=== PATIENT | male | born 1950 | race Caucasian/White ===

== ENCOUNTER → 2023-08-21 06:17 | Outpatient (REF) | payer MEDICARE, OTHER, SELFPAY ==
[2023-08-21 07:17] LABS: Erythrocyte Sed Rate 18 mm/hour (0-20)
[2023-08-21 07:18] LABS: Creatine Phosphokinase 102 U/L (55-170); Uric Acid 7.2 mg/dl (3.5-8.5)
[2023-08-23 08:26] LABS: Myeloperoxidase Antibody 0 AU/mL (0-19); Serine Protease-3, IgG 0 AU/mL (0-19)
[2023-08-23 12:48] LABS: Glu-6-Phosphate Dehydrogenase 11.5 U/g Hb (9.9-16.6)
[2023-08-25 04:14] LABS: Albumin 4.15 g/dL (3.75-5.01); Alpha 1 Globulin 0.22 g/dL (0.19-0.46); Alpha 2 Globulin 0.61 g/dL (0.48-1.05); Free Kappa Light Chains,Quant 22.98 mg/L (3.30-19.40); Free Lambda Light Chains,Quant 19.72 mg/L (5.71-26.30); IgA 269 mg/dL (68-408); IgG 944 mg/dL (768-1632); IgM 112 mg/dL (35-263); Immunofixation Electrophoresis IFE Done; Kappa/Lambda Fr Light Ratio 1.17 (0.26-1.65); Total Protein-Electrophoresis 6.7 g/dL (6.3-8.2)
== END ==
LOC: REG 06:17
PROVIDERS: ATTENDING PHYSICIAN Internal Medicine Rheumatology; FAMILY PHYSICIAN Family Medicine
DX: R70.0 Elevated erythrocyte sedimentation rate (principal)
CPT/HCPCS: 36415; 82550; 82784; 82955; 83516; 83521; 84155; 84165; 84550; 85652; 86140; 86334

== ENCOUNTER → 2023-09-02 06:26 | Outpatient (REF) | payer MEDICARE, OTHER, SELFPAY ==
[2023-09-02 07:52] LABS: ALT (SGPT) 20 U/L (0-50); AST (SGOT) 21 U/L (17-59); Alkaline Phosphatase 53 U/L (38-126); Blood Urea Nitrogen 23 mg/dl (9-20); Calcium 9.5 mg/dl (8.4-10.2); Carbon Dioxide 26 mmol/L (22-30); Chloride 106 mmol/L (98-107); Glucose 105 mg/dl (70-99); HDL Cholesterol 59 mg/dl; LDL Cholesterol, Calculated 72 mg/dl; Sodium 141 mmol/L (135-145); Total Bilirubin 0.9 mg/dl (0.2-1.3); Total Cholesterol 157 mg/dl (50-199); Total Protein 6.7 g/dl (6.3-8.2); Triglyceride 130 mg/dl (10-149); Very Low Density Lipoprotein 26 mg/dl (0-30); eGFR > 60.00
[2023-09-02 09:27] LABS: Glycohemoglobin (HgbA1c) 6.5 % (4.0-5.6)
== END ==
LOC: REG 06:26
PROVIDERS: ATTENDING PHYSICIAN Internal Medicine Cardiovascular Disease; FAMILY PHYSICIAN Family Medicine
DX: E78.2 Mixed hyperlipidemia (principal); I25.118 Atherosclerotic heart disease of native coronary artery with other forms of angina pectoris; R73.03 Prediabetes; I10 Essential (primary) hypertension
CPT/HCPCS: 36415; 80053; 80061; 83036

== ENCOUNTER → 2023-09-09 19:30 | Outpatient (REF) | payer MEDICARE, OTHER, SELFPAY ==
[2023-09-10 19:36] LABS: Urine Albumin Negative (Neg - Trace); Urine Bilirubin Negative (Negative); Urine Character Clear (Clear); Urine Color Yellow; Urine Glucose Negative (Negative); Urine Ketone Negative (Negative); Urine Leukocyte Negative (Negative); Urine Nitrite Negative (Negative); Urine Occult Blood Negative (Negative); Urine Specific Gravity 1.025 (<1.030); Urine Urobilinogen Negative (Neg - 1+)
[2023-09-10 20:03] LABS: Microalbumin, Random Urine < 0.6 mg/dl (0.6-1.7)
== END ==
LOC: CLAB 19:30
PROVIDERS: ATTENDING PHYSICIAN Family Medicine
DX: E11.69 Type 2 diabetes mellitus with other specified complication (principal); E78.5 Hyperlipidemia, unspecified
CPT/HCPCS: 81003; 82043; 82570

== ENCOUNTER → 2023-09-11 06:26 | Day surgery (SDC) | payer MEDICARE, OTHER, SELFPAY ==
[2023-09-11 07:26] LABS: Glucose - Point of Care 110 mg/dl (70-99)
== END ==
LOC: GI 06:26
PROVIDERS: ATTENDING PHYSICIAN Specialist; FAMILY PHYSICIAN Family Medicine
DX: Z12.11 Encounter for screening for malignant neoplasm of colon (principal); Z86.010 Personal history of colon polyps; K64.8 Other hemorrhoids
CPT/HCPCS: G0105; 82962

== ENCOUNTER → 2023-09-27 06:20 | Day surgery (SDC) | payer MEDICARE, OTHER, SELFPAY ==
[2023-09-27 08:19] LABS: Glucose - Point of Care 137 mg/dl (70-99)
== END ==
LOC: GI 06:20
PROVIDERS: ATTENDING PHYSICIAN Specialist
DX: K22.89 Other specified disease of esophagus (principal); K31.7 Polyp of stomach and duodenum; K31.89 Other diseases of stomach and duodenum; K29.50 Unspecified chronic gastritis without bleeding; K20.80 Other esophagitis without bleeding
CPT/HCPCS: 43239; 88305; 82962; 88342

== ENCOUNTER → 2023-12-09 06:34 | Outpatient (REF) | payer MEDICARE, OTHER, SELFPAY ==
[2023-12-09 08:38] LABS: ALT (SGPT) 19 U/L (0-50); AST (SGOT) 25 U/L (17-59); Albumin 4.4 g/dl (3.5-5.0); Alkaline Phosphatase 55 U/L (38-126); Blood Urea Nitrogen 30 mg/dl (9-20); Calcium 9.9 mg/dl (8.4-10.2); Carbon Dioxide 26 mmol/L (22-30); Chloride 103 mmol/L (98-107); Glucose 122 mg/dl (70-99); HDL Cholesterol 61 mg/dl; LDL Cholesterol, Calculated 68 mg/dl; Potassium 4.9 mmol/L (3.5-5.1); Sodium 139 mmol/L (135-145); Total Bilirubin 1.2 mg/dl (0.2-1.3); Total Cholesterol 173 mg/dl (50-199); Triglyceride 223 mg/dl (10-149); Very Low Density Lipoprotein 44 mg/dl (0-30); eGFR > 60.00
[2023-12-09 10:16] LABS: Glycohemoglobin (HgbA1c) 6.3 % (4.0-5.6)
== END ==
LOC: REG 06:34
PROVIDERS: ATTENDING PHYSICIAN Family Medicine
DX: E11.69 Type 2 diabetes mellitus with other specified complication (principal); E78.5 Hyperlipidemia, unspecified
CPT/HCPCS: 36415; 80053; 80061; 83036

== ENCOUNTER → 2024-03-02 06:34 | Outpatient (REF) | payer MEDICARE, OTHER, SELFPAY ==
[2024-03-02 08:33] LABS: Microalbumin, Random Urine <0.6 mg/dl (0.6-1.7)
[2024-03-02 08:36] LABS: Creatine Phosphokinase 98 U/L (55-170); Iron 112 ug/dl (49-181)
[2024-03-02 08:38] LABS: ALT (SGPT) 20 U/L (0-50); AST (SGOT) 25 U/L (17-59); Albumin 4.1 g/dl (3.5-5.0); Alkaline Phosphatase 61 U/L (38-126); Blood Urea Nitrogen 23 mg/dl (9-20); Calcium 9.9 mg/dl (8.4-10.2); Carbon Dioxide 28 mmol/L (22-30); Chloride 103 mmol/L (98-107); Glucose 126 mg/dl (70-99); HDL Cholesterol 39 mg/dl; LDL Cholesterol, Calculated 69 mg/dl; Potassium 4.3 mmol/L (3.5-5.1); Sodium 144 mmol/L (135-145); Total Cholesterol 186 mg/dl (50-199); Total Protein 6.5 g/dl (6.3-8.2); Triglyceride 390 mg/dl (10-149); Very Low Density Lipoprotein 78 mg/dl (0-30); eGFR > 60.00
[2024-03-02 08:39] LABS: C-Reactive Protein < 5.00 mg/L (0.0-10.00)
[2024-03-02 09:10] LABS: Cortisol, Random 9.9 ug/dl; TSH 1.57 uIU/ml (0.47-4.68)
[2024-03-02 09:24] LABS: Erythrocyte Sed Rate 22 mm/hour (0-20)
[2024-03-02 09:29] LABS: Vitamin B12 535 pg/ml (239-931)
[2024-03-02 09:40] LABS: Vitamin D, 25-OH*** 88.7 ng/mL (30-80)
[2024-03-02 13:45] LABS: Lyme Antibody Screen, EIA Negative (Negative)
[2024-03-03 09:14] LABS: Glycohemoglobin (HgbA1c) 6.5 % (4.0-5.6)
== END ==
LOC: REG 06:34
PROVIDERS: ATTENDING PHYSICIAN Nurse Practitioner; FAMILY PHYSICIAN Family Medicine; REFERRING PHYSICIAN Internal Medicine Rheumatology
DX: R53.83 Other fatigue (principal); R52 Pain, unspecified; E11.69 Type 2 diabetes mellitus with other specified complication; E55.9 Vitamin D deficiency, unspecified; E61.1 Iron deficiency; R70.0 Elevated erythrocyte sedimentation rate; K80.50 Calculus of bile duct without cholangitis or cholecystitis without obstruction
CPT/HCPCS: 36415; 80053; 80061; 82043; 82306; 82533; 82550; 82570; 82607; 82728; 83036; 83540; 84443; 85652; 86140; 86618

== ENCOUNTER → 2024-04-02 06:21 | Outpatient (REF) | payer MEDICARE, OTHER, SELFPAY ==
[2024-04-02 07:29] LABS: Hemoglobin 15.1 g/dL (13.0-18.0); Mean Corp Hgb Conc. 35.1 g/dL (33.0-37.0); Mean Corpuscular Hgb 31.8 pg (27.0-31.0); Mean Corpuscular Volume 90.5 fL (80.0-94.0); Mean Platelet Volume 9.3 fL (7.4-10.4); Platelet Count 266 10^3/uL (130-400); Red Blood Cell Count 4.75 10^6/uL (4.70-6.10); Red Cell Dist. Width 12.9 % (11.5-14.5); White Blood Cell Count 8.8 10^3/uL (4.8-10.8)
[2024-04-02 08:24] LABS: PSA, Total - Diagnostic 4.65 ng/ml (0.0-4.0)
== END ==
LOC: REG 06:21
PROVIDERS: ATTENDING PHYSICIAN Specialist; FAMILY PHYSICIAN Family Medicine
DX: E29.1 Testicular hypofunction (principal); R97.20 Elevated prostate specific antigen [PSA]
CPT/HCPCS: 36415; 84153; 85027

== ENCOUNTER → 2024-06-01 06:23 | Outpatient (REF) | payer MEDICARE, OTHER, SELFPAY ==
[2024-06-01 07:34] LABS: Urine Albumin Negative (Neg - Trace); Urine Bilirubin Negative (Negative); Urine Character Clear (Clear); Urine Color Yellow; Urine Glucose Negative (Negative); Urine Ketone Negative (Negative); Urine Leukocyte Negative (Negative); Urine Nitrite Negative (Negative); Urine Occult Blood Negative (Negative); Urine Specific Gravity 1.015 (<1.030); Urine Urobilinogen Negative (Neg - 1+); Urine pH 6.5 (5.0-9.0)
[2024-06-01 07:55] LABS: PSA, Total - Diagnostic 1.78 ng/ml (0.0-4.0)
== END ==
LOC: REG 06:23
PROVIDERS: ATTENDING PHYSICIAN Specialist; FAMILY PHYSICIAN Family Medicine
DX: R97.20 Elevated prostate specific antigen [PSA] (principal); R35.0 Frequency of micturition
CPT/HCPCS: 36415; 81003; 84153

== ENCOUNTER → 2024-07-14 08:01 | Outpatient (REF) | payer MEDICARE, OTHER, SELFPAY ==
[2024-07-14 10:08] LABS: % Basophils 0.7 % (0-2); % Eosinophils 3.7 % (0-6); % Immature Granulocytes 0.3 % (0-0.5); % Lymphocytes 23.3 % (20.5-51.1); % Monocytes 8.4 % (1.7-9.3); % Neutrophils 63.6 % (42.2-75.2); Absolute Eosinophils 0.2 10^3/uL (0-0.7); Absolute Lymphocytes 1.3 10^3/uL (1.2-3.4); Absolute Monocytes 0.5 10^3/uL (0.1-0.6); Absolute Neutrophils 3.6 10^3/uL (1.4-6.5); Hematocrit 41.6 % (39.0-52.0); Hemoglobin 14.6 g/dL (13.0-18.0); Mean Corp Hgb Conc. 35.1 g/dL (33.0-37.0); Mean Corpuscular Hgb 31.7 pg (27.0-31.0); Mean Corpuscular Volume 90.4 fL (80.0-94.0); Mean Platelet Volume 9.8 fL (7.4-10.4); Nucleated Red Blood Cells % 0 % (-); Platelet Count 219 10^3/uL (130-400); Red Cell Dist. Width 13.2 % (11.5-14.5); White Blood Cell Count 5.7 10^3/uL (4.8-10.8)
[2024-07-14 10:53] LABS: ALT (SGPT) 28 U/L (0-50); AST (SGOT) 29 U/L (17-59); Albumin 4.5 g/dl (3.5-5.0); Alkaline Phosphatase 58 U/L (38-126); Blood Urea Nitrogen 21 mg/dl (9-20); Calcium 9.5 mg/dl (8.4-10.2); Carbon Dioxide 21 mmol/L (22-30); Chloride 101 mmol/L (98-107); Glucose 123 mg/dl (70-99); HDL Cholesterol 44 mg/dl; LDL Cholesterol, Calculated 138 mg/dl; Potassium 4.4 mmol/L (3.5-5.1); Sodium 136 mmol/L (135-145); Total Bilirubin 1.4 mg/dl (0.2-1.3); Total Cholesterol 227 mg/dl (50-199); Total Protein 7.1 g/dl (6.3-8.2); Triglyceride 227 mg/dl (10-149); Very Low Density Lipoprotein 45 mg/dl (0-30); eGFR > 60.00
[2024-07-14 12:01] LABS: Glycohemoglobin (HgbA1c) 6.4 % (4.0-5.6)
== END ==
LOC: REG 08:01
PROVIDERS: ATTENDING PHYSICIAN Family Medicine
DX: N40.1 Benign prostatic hyperplasia with lower urinary tract symptoms (principal); R97.20 Elevated prostate specific antigen [PSA]; I10 Essential (primary) hypertension; T88.1XXS Other complications following immunization, not elsewhere classified, sequela; E11.69 Type 2 diabetes mellitus with other specified complication; E29.1 Testicular hypofunction; E78.5 Hyperlipidemia, unspecified
CPT/HCPCS: 36415; 80053; 80061; 83036; 85025

== ENCOUNTER → 2024-08-03 06:56 | Outpatient (REF) | payer MEDICARE, OTHER, SELFPAY ==
[2024-08-03 08:53] LABS: ALT (SGPT) 24 U/L (0-50); AST (SGOT) 24 U/L (17-59); Albumin 4.3 g/dl (3.5-5.0); Alkaline Phosphatase 64 U/L (38-126); Blood Urea Nitrogen 39 mg/dl (9-20); Calcium 9.8 mg/dl (8.4-10.2); Carbon Dioxide 30 mmol/L (22-30); Chloride 101 mmol/L (98-107); Glucose 138 mg/dl (70-99); HDL Cholesterol 43 mg/dl; LDL Cholesterol, Calculated 102 mg/dl; Sodium 138 mmol/L (135-145); Total Bilirubin 0.9 mg/dl (0.2-1.3); Total Cholesterol 205 mg/dl (50-199); Total Protein 7.2 g/dl (6.3-8.2); Triglyceride 303 mg/dl (10-149); Very Low Density Lipoprotein 60 mg/dl (0-30); eGFR 42.57
== END ==
LOC: REG 06:56
PROVIDERS: ATTENDING PHYSICIAN Internal Medicine Cardiovascular Disease; FAMILY PHYSICIAN Family Medicine
DX: E78.2 Mixed hyperlipidemia (principal); I25.118 Atherosclerotic heart disease of native coronary artery with other forms of angina pectoris
CPT/HCPCS: 36415; 80053; 80061

== ENCOUNTER → 2024-09-07 06:22 | Outpatient (REF) | payer MEDICARE, OTHER, SELFPAY ==
[2024-09-07 08:18] LABS: ALT (SGPT) 32 U/L (0-50); AST (SGOT) 28 U/L (17-59); Albumin 3.9 g/dl (3.5-5.0); Alkaline Phosphatase 55 U/L (38-126); Blood Urea Nitrogen 25 mg/dl (9-20); Calcium 9.6 mg/dl (8.4-10.2); Carbon Dioxide 26 mmol/L (22-30); Chloride 104 mmol/L (98-107); Glucose 132 mg/dl (70-99); HDL Cholesterol 42 mg/dl; LDL Cholesterol, Calculated 82 mg/dl; Potassium 4.9 mmol/L (3.5-5.1); Sodium 138 mmol/L (135-145); Total Bilirubin 1.1 mg/dl (0.2-1.3); Total Cholesterol 173 mg/dl (50-199); Total Protein 6.4 g/dl (6.3-8.2); Triglyceride 248 mg/dl (10-149); Very Low Density Lipoprotein 49 mg/dl (0-30); eGFR 58.73
== END ==
LOC: REG 06:22
PROVIDERS: ATTENDING PHYSICIAN Internal Medicine Cardiovascular Disease; FAMILY PHYSICIAN Family Medicine
DX: I25.118 Atherosclerotic heart disease of native coronary artery with other forms of angina pectoris (principal); E78.5 Hyperlipidemia, unspecified
CPT/HCPCS: 36415; 80053; 80061

== ENCOUNTER → 2024-10-26 06:25 | Outpatient (REF) | payer MEDICARE, OTHER, SELFPAY ==
[2024-10-26 08:52] LABS: Hematocrit 41.3 % (39.0-52.0); Hemoglobin 14.3 g/dL (13.0-18.0); Mean Corp Hgb Conc. 34.6 g/dL (33.0-37.0); Mean Corpuscular Hgb 31.6 pg (27.0-31.0); Mean Corpuscular Volume 91.2 fL (80.0-94.0); Mean Platelet Volume 9.7 fL (7.4-10.4); Platelet Count 206 10^3/uL (130-400); Red Blood Cell Count 4.53 10^6/uL (4.70-6.10); Red Cell Dist. Width 12.3 % (11.5-14.5); White Blood Cell Count 6.4 10^3/uL (4.8-10.8)
[2024-10-26 09:33] LABS: PSA, Total - Diagnostic 2.67 ng/ml (0.0-4.0)
== END ==
LOC: REG 06:25
PROVIDERS: ATTENDING PHYSICIAN Specialist; FAMILY PHYSICIAN Family Medicine
DX: E29.1 Testicular hypofunction (principal); R97.20 Elevated prostate specific antigen [PSA]
CPT/HCPCS: 36415; 84153; 84403; 85027

== ENCOUNTER 2024-10-26 06:44 | Emergency (ER) | payer MEDICARE, OTHER, SELFPAY ==
[2024-10-26 06:49] VITALS: BP 135/55
--- NOTE | 2024-10-26 08:29 | ED.GENMED ---
History of Present Illness
General
Chief Complaint: Musculo-Skeletal Complaint
Source: patient
Time Seen by Provider: 10/26/24 08:10
History of Present Illness
History of Present Illness:
74-year-old male with past medical history of hyperlipidemia, GERD, ozm-snxfics-inszmaeyl diabetes, previous spontaneous pneumothorax presenting to the emergency department for evaluation of right lateral foot pain that started couple weeks ago
while cleaning out his house, does not remember any specific injury to the area but states pain has been relatively constant prompting him to come to the ER. Has not attempted any medications for pain. Pain worse while ambulating. Denies any
focal weakness or numbness. Denies any previous history of injury or surgery.
Past History
Past History
ED Past Medical History: GERD, Hypercholesterolemia, NIDDM and Other (Hemorrhoids, arthritis, fractures, hearing impairment, psoriasis)
ED Past Surgical History: Cardiac (Cardiac catheterization without any obstructive disease), Orthopedic (Right shoulder surgery �2 left shoulder surgery �1), Tonsilectomy and Other (surgery for deviated septum)
Social History
Tobacco: Non-smoker
Alcohol: None
Drug: None
Personal:
Living: with family
Employment: Employed
Review of Systems
Review of Systems
All Other Systems: ROS reviewed and negative except as documented in HPI and ROS
Phy Exam
Physical Exam
Physical Exam:
GENERAL: Alert , in no apparent distress
EYE: conjunctiva clear
Head: Normocephalic atraumatic
NECK: Supple,
ENT: mmm.
LUNGS: no acute respiratory distress
NEUROLOGICAL: Alert and oriented
SKIN: Warm and dry, skin intact. No rashes or breaks in the skin
MUSCULOSKELETAL: well perfused. Easily palpable pedal and tibial pulses bilateral. Cap refill less than 2 seconds. No focal areas of tenderness to palpation, no obvious edema or joint effusion. No overlying erythema. Patient allows for full
range of motion of digits, ankle and knee without any complication.
PSYCH: Normal and appropriate interaction.
Scores
Heart Failure Risk
Heart Failure Risk Score: Not Applicable
Heart Score for Chest Pain Patients
STEMI patient?: Not applicable
Withdrawal Assessment of Alcohol
Withdrawal Assessment Completed?: Not applicable
Course
Orders/Labs/Results
Orders:
Orders
10/26/24 06:52
Foot, Right 3 View [CR Foot - Right Min 3 Views] Urgent
Comment:
Reason For Exam: FALL
10/26/24 08:16
CR Ankle - Right Min 3 Views * Urgent
Comment:
Reason For Exam: pain laterally
Vital Signs
Initial and Last Documented VS:
Initial Vital Signs
Temp Pulse Resp BP Pulse Ox
97.9 F 54 18 135/55 100
10/26/24 06:49 10/26/24 06:49 10/26/24 06:49 10/26/24 06:49 10/26/24 06:49
Last Documented Vital Signs
Temp Pulse Resp BP Pulse Ox
97.9 F 54 18 135/55 100
10/26/24 06:49 10/26/24 06:49 10/26/24 06:49 10/26/24 06:49 10/26/24 06:49
MDM/Problems Addressed
Differential Diagnosis Includes:
Sprain, tendinitis, plantar fasciitis, less concern for fracture given no acute trauma, no concern for vascular etiology
MDM/Problems Addressed:
74-year-old male presenting to the ER for continuous right foot pain/ankle pain for the last few weeks. Does not remember any specific trauma. Exam otherwise reassuring. X-ray was ordered from triage just of the foot which shows a questionable
distal fibula fracture versus shadowing. Will send patient back to x-ray for dedicated ankle view. Heel spur noted on the foot x-ray. Patient will likely need outpatient follow-up with foot and ankle Ortho.
*Radiology
Radiology exam reviewed: preliminary read by ED provider (No fracture within the foot, heel spur noted)
*Pulse Oximetry
Patient hypoxic: no
*Critical Care Note
Total Time (30-74mins, 75-104mins- exclusive of procedures): Not Applicable
Patient Management
Escalation/DeEscalation of care consider admission/obs:
X-ray of the ankle shows no acute fracture. I provided the patient with information for podiatry. Advised NSAIDs/Tylenol as needed for the pain but patient is otherwise stable for discharge home from the ER. Aware of return precautions.
ED Attending Note
-
Portions of this chart may have been created with voice recognition software.� Occasional wrong word or��sound alike� substitutions may have occurred due to the inherent limitations of voice recognition software.
Discharge Plan
Departure
Patient Disposition: Home (Routine Discharge)
Date of Disposition: 10/26/24
Time of Disposition: 08:53
Patient with high blood pressure during this ER visit?: No
Discharge Problem:
Foot pain, right
Instructions: Metatarsalgia (DC)
Prescriptions:
No Action
pantoprazole 40 MG tablet,delayed release (DR/EC)
40 mg PO DAILY
Testopel
8 - 10 tab PO [id number]
Repatha SureClick 140 MG/ML pen injector
140 mg SQ [id number]
trazodone 50 MG tablet
50 mg PO HS PRN (Reason: sleep)
sildenafil 100 mg Tablet
100 mg PO DAILY PRN (Reason: ED)
hydroxychloroquine 200 mg Tablet
200 mg PO BID
valsartan-hydrochlorothiazide 320-25 mg Tablet
0.5 tab PO DAILY
cholecalciferol (vitamin D3) [Vitamin D3] 125 mcg (5,000 unit) Tablet
125 mcg PO DAILY
Simponi 100 mg/mL Syringe
100 mg SC Q8W
Rx Instructions:
approximately early December was last dose
Referrals:
Fiordaliza,Derek J., DO [Family Provider] -
Lamine Parra DPM [Active] - (Foot/ankle specialist)
Interventions
Interventions:
*Risk Screen - Suicide Last Done: 10/26/24 06:49
*Neglect/Abuse Screening Last Done: 10/26/24 06:49
*Nursing Disposition Last Done: 10/26/24 09:00
ED-Musculoskeletal Assessment Last Done: 10/26/24 07:50
Discharge Date and Time
Discharge Date/Time: 10/26/24 09:00
Print Language: PALAUAN
== END 2024-10-26 09:00 | disposition home or self-care (01) ==
LOC: EMR 06:44
PROVIDERS: EMERGENCY PHYSICIAN Student in an Organized Health Care Education/Training Program; FAMILY PHYSICIAN Family Medicine
DX: M79.671 Pain in right foot (principal); W19.XXXA Unspecified fall, initial encounter; E78.00 Pure hypercholesterolemia, unspecified; K21.9 Gastro-esophageal reflux disease without esophagitis; E11.9 Type 2 diabetes mellitus without complications; L40.9 Psoriasis, unspecified; Z87.19 Personal history of other diseases of the digestive system
CPT/HCPCS: 99283; 73610; 73630

== ENCOUNTER → 2025-01-21 07:03 | Outpatient (REF) | payer MEDICARE, OTHER, SELFPAY ==
[2025-01-21 08:38] LABS: ALT (SGPT) 27 U/L (0-50); AST (SGOT) 24 U/L (17-59); Albumin 4.7 g/dl (3.5-5.0); Alkaline Phosphatase 55 U/L (38-126); Blood Urea Nitrogen 22 mg/dl (9-20); Calcium 9.6 mg/dl (8.4-10.2); Carbon Dioxide 26 mmol/L (22-30); Chloride 105 mmol/L (98-107); Glucose 124 mg/dl (70-99); HDL Cholesterol 44 mg/dl; LDL Cholesterol, Calculated 33 mg/dl; Potassium 4.7 mmol/L (3.5-5.1); Sodium 138 mmol/L (135-145); Total Protein 7.4 g/dl (6.3-8.2); Very Low Density Lipoprotein 48 mg/dl (0-30); eGFR > 60.00
[2025-01-21 09:08] LABS: TSH 1.33 uIU/ml (0.47-4.68)
[2025-01-21 09:31] LABS: Glycohemoglobin (HgbA1c) 6.1 % (4.0-5.6)
== END ==
LOC: REG 07:03
PROVIDERS: ATTENDING PHYSICIAN Family Medicine; OTHER PHYSICIAN Nurse Practitioner
DX: E78.5 Hyperlipidemia, unspecified (principal); N18.30 Chronic kidney disease, stage 3 unspecified; E11.69 Type 2 diabetes mellitus with other specified complication; M79.7 Fibromyalgia; I10 Essential (primary) hypertension; E29.1 Testicular hypofunction; T46.6X5D Adverse effect of antihyperlipidemic and antiarteriosclerotic drugs, subsequent encounter; M79.10 Myalgia, unspecified site
CPT/HCPCS: 36415; 80053; 80061; 83036; 84443

== ENCOUNTER → 2025-03-02 07:49 | Outpatient (REF) | payer MEDICARE, OTHER, SELFPAY ==
[2025-03-02 08:52] LABS: Hematocrit 46.9 % (39.0-52.0); Hemoglobin 16.0 g/dL (13.0-18.0); Mean Corp Hgb Conc. 34.1 g/dL (33.0-37.0); Mean Corpuscular Volume 91.6 fL (80.0-94.0); Platelet Count 242 10^3/uL (130-400); Red Cell Dist. Width 12.3 % (11.5-14.5)
[2025-03-02 10:04] LABS: PSA, Total - Diagnostic 2.58 ng/ml (0.0-4.0)
== END ==
LOC: REG 07:49
PROVIDERS: ATTENDING PHYSICIAN Specialist; FAMILY PHYSICIAN Family Medicine
DX: E29.1 Testicular hypofunction (principal); R97.20 Elevated prostate specific antigen [PSA]
CPT/HCPCS: 36415; 84153; 84403; 85027

== ENCOUNTER 2025-03-23 11:13 | Day surgery (SDC) | payer MEDICARE, OTHER, SELFPAY ==
[2025-03-23] VITALS (13 sets, daily range): BP systolic 119–150; BP diastolic 45–72; BMI 28.5
[2025-03-23] MEDS: NSS 248 ML IV (12:41)
[2025-03-23 13:09] LABS: ALT (SGPT) 23 U/L (0-50); AST (SGOT) 22 U/L (17-59); Albumin 4.4 g/dl (3.5-5.0); Alkaline Phosphatase 63 U/L (38-126); Blood Urea Nitrogen 28 mg/dl (9-20); Calcium 9.9 mg/dl (8.4-10.2); Carbon Dioxide 25 mmol/L (22-30); Chloride 105 mmol/L (98-107); Estimated Creatinine Clearance 48 ml/min; Glucose 112 mg/dl (70-99); Potassium 4.4 mmol/L (3.5-5.1); Sodium 136 mmol/L (135-145); Total Protein 7.2 g/dl (6.3-8.2); eGFR 58.37
[2025-03-23 15:23] LABS: ACT-LR - POC 252 Seconds (116-155)
[2025-03-23 15:43] LABS: ACT-LR - POC 385 Seconds (116-155)
--- NOTE | 2025-03-23 19:28 | ITS.CL.PN ---
Penology Professor - Procedure Note
Procedure
Procedure Note:
CARDIAC CATHETERIZATION REPORT
Date of Procedure: 03/23/2025
Referring: Dr. Brandon Sanchez MD, PhD
Indication: anginal chest pain despite maximally tolerated antianginals
PROCEDURE(S)
1. left heart catheterization
2. coronary angiography
3. iFR LAD
4. IVUS LAD
5. PCI with DANIS to LAD
ACCESS: 6F right femoral artery (closure: Angioseal x1; radial artery not used due to reported severe radial artery spasm)
CATHETERS
1. 6F JR4
2. EBU3.75 guide catheter
MODERATE SEDATION: 35 minutes of moderate sedation was utilized. An independent medical instrument technician was present to assist with and help manage the patient's level of consciousness and physiologic status.
HEMODYNAMIC DATA
LV 133/11 (EDP 19) mmHg
AO 139/70 (mean 99) mmHg
CORONARY ANGIOGRAPHY
Dominance: Right
LM: Large vessel with mild ostial narrowing, contrast reflux noted on injection, and no pressure dampening on engagement.
LAD: Large vessel giving rise to 2 small diagonal branches and wrapping around the apex. There is a long calcified lesion in the proximal LAD up to 60%. This was further assessed with iFR.
LCx: Moderate caliber vessel giving rise to small early rising marginals and a moderate caliber distal OM. There are mild luminal irregularities only.
RCA: Large vessel giving rise to a moderate caliber RPDA and a moderate caliber RPL branch. There are mild luminal irregularities only.
iFR of LAD
Heparin was given to achieve ACT greater than 250, and a EBU 3.75 guide catheter was used to engage the left main. An Omni wire was flushed and zeroed outside the body and then advanced to the left main. The wire introducer was removed and the
catheter flushed with saline, after which pressure of the wire and guide were normalized. The wire was advanced to the mid LAD and iFR recorded at 0.79. iFR pullback was performed noting a focal pattern with most of the contribution from the severe
calcific lesion but some diffuse contribution from the mild disease extending proximally to the LAD ostium. On return to the left main, iFR appropriately normalized to ~1.0, confirming lack of wire drift. Based on this result, the decision was made
to perform LAD PCI.
PCI with DANIS to LAD
Additional heparin was given to achieve ACT greater than 300. Initial lesion preparation was performed with a 2.0 mm semicompliant balloon with full expansion. IVUS was performed demonstrating a 3.0 mm distal reference vessel diameter and 3.25 mm
proximal reference vessel diameter. Further lesion preparation was performed with a 3.0 mm NC balloon which fully expanded at 12 german. Stenting was performed with a 3.0 x 30 mm [place] Haakon drug-eluting stent deployed at 16 german followed by post
dilation with a 3.0 mm NC balloon sparing the distal and proximal edge and inflated to 20 german elsewhere. IVUS was performed which demonstrated full stent expansion and apposition without edge dissection. The proximal edge of the stent was noted to
land just before an area of heavier plaque at the ostial LAD. Final angiographic result was excellent. The wire and guide were removed and the groin closed with Angio-Seal x 1. The patient was loaded with 600 mg of Plavix.
RADIATION: dose 332 mGy; DAP 19.0 Gy*cm2; fluoroscopy time 10.9 min
CONCLUSIONS
1. Single-vessel obstructive coronary artery disease as described with iFR positive proximal LAD stenosis
2. Mildly elevated LV filling pressure and no aortic stenosis
3. IVUS guided PCI with DANIS to proximal LAD (3.0 x 30 mm Ti[place] Haakon drug-eluting stent postdilated to high-pressure with 3.0 mm NC balloon)
RECOMMENDATIONS
1. DAPT with aspirin and Plavix for 6 months followed by lifetime aspirin
2. Continued aggressive secondary prevention of coronary artery disease
Copy to: Dr. Brandon Sanchez MD, PhD (robotic toy inventor); Dr. Derek Mancera MD (PCP)
Signed: Brandon Sanchez MD, PhD
[2025-03-23] MEDS: TYLENOL 650 MG PO (19:54)
[2025-03-23] MEDS: DESYREL 50 MG PO (22:14)
--- NOTE | 2025-03-23 23:40 | W.PN.UPDATE ---
Update Note
Progress Note Update
Cardiology Update Note:
-Called by Nurse to assess oozing right groin S/P PCI with LAD stent
-Applied direct manual pressure x 10 min before achieving hemostasis
-Pressure dressing/hemostatic pad applied post manual pressure
-Groin is without hematoma or ecchymosis
-Pt advised to remain in bed x 4hrs
-Will cont. to monitor site
[2025-03-23] MEDS: ROXICODONE 5 MG PO (23:44)
--- NOTE | 2025-03-24 00:36 | PTCARENOTE ---
Received patient at change of shift. SR on the monitor, HR in the 60s. R groin with drainage, pressure held by nurse and PA, redressed, see documentation. Continue bedrest as per PA. R groin pain, pain medication administered as per order, see MAR.
PRN Trazodone administered as per pt request. Call ortega within reach.
[2025-03-24 03:25] VITALS: BP 126/61
[2025-03-24 04:16] LABS: Hematocrit 38.9 % (39.0-52.0); Hemoglobin 14.0 g/dL (13.0-18.0); Mean Corp Hgb Conc. 36.0 g/dL (33.0-37.0); Mean Corpuscular Volume 88.8 fL (80.0-94.0); Platelet Count 219 10^3/uL (130-400); Red Cell Dist. Width 12.8 % (11.5-14.5)
[2025-03-24 05:06] LABS: Calcium 9.2 mg/dl (8.4-10.2); Carbon Dioxide 22 mmol/L (22-30); Chloride 108 mmol/L (98-107); Estimated Creatinine Clearance 57 ml/min; Glucose 130 mg/dl (70-99); HDL Cholesterol 39 mg/dl; LDL Cholesterol, Calculated 66 mg/dl; Potassium 4.2 mmol/L (3.5-5.1); Sodium 136 mmol/L (135-145); Very Low Density Lipoprotein 42 mg/dl (0-30); eGFR > 60.00
[2025-03-24 05:31] LABS: Blood Urea Nitrogen 22 mg/dl (9-20)
[2025-03-24 07:10] VITALS: BP 122/42
[2025-03-24] MEDS: LOW STRENGTH ASPIRIN 81 MG PO (08:24)
[2025-03-24] MEDS: PROTONIX 40 MG PO (08:24)
[2025-03-24] MEDS: ZETIA 10 MG PO (08:24)
[2025-03-24] MEDS: PLAVIX 75 MG PO (08:24)
[2025-03-24] MEDS: ORETIC 12.5 MG PO (08:24)
[2025-03-24] MEDS: DIOVAN 160 MG PO (08:29)
--- NOTE | 2025-03-24 10:38 | W.PN.CARDCBS ---
Addendum entered and electronically signed by Joe Monroy MD 03/24/25 13:02:
Patient seen and examined in collaboration with AGILE SCRUM COACH; agree with below.
- Patient is stable status-post PCI to the LAD yesterday.
- Continue DAPT and other cardiac medications.
- Stable for discharge to home; outpatient follow-up with Cardiology.
Original Note:
Today's Communication / Plan
-
post PCI LAD
DAPT
groin ooze o/n, stable this am, oob ambulate if no further drainage
stabel for d/c home
Impression / Plan
-
Primary care physician: Derek Mancera MD
Primary shoe clerk: Steven Sanchez MD
Impression/Plan:
#CAD/Atypical chest pain - Cath at [facility] with 80% cacified stenosis, came to [facility] for second opinion attempt at medical therapy failed. He had cath with IFR + mid LAD, succesfully stented x1 DANIS on 03/23/25
feels good, no CP, had some mild groin oozing o/n, c/d/i and soft this am, hbg stable
DAPT ASA/plavix for 6 mo, followed by lifetime aspirin
Cardiac rehab c/s
f/u CBC 2-4 weeks
oob ambulate if groin stable, d/c home
#Hyperlipidemia - statin intolerance, LDL 66, continue Leqvio but will be switching back to Repatha soon as it worked better for his numbers
continue ezetimibe
#BPH
#GERD
#LDDD
#Fatty liver
#ED
03/23/25 [facility]:
1. Single-vessel obstructive coronary artery disease as described with iFR positive proximal LAD stenosis
2. Mildly elevated LV filling pressure and no aortic stenosis
3. IVUS guided PCI with DANIS to proximal LAD (3.0 x 30 mm [place] drug-eluting stent postdilated to high-pressure with 3.0 mm NC balloon)
Progress Note - Energy Sales Broker
Subjective
Date of Service: March 24, 2025
denies cp, sob
Objective
Labs:
03/24/25 03:31
03/24/25 03:31
Labs
Hgb 14.0 g/dL (13.0-18.0) 03/24/25 03:31
Hct 38.9 % (39.0-52.0) L 03/24/25 03:31
Plt Count 219 10^3/uL (130-400) 03/24/25 03:31
Sodium 136 mmol/L (135-145) 03/24/25 03:31
Potassium 4.2 mmol/L (3.5-5.1) 03/24/25 03:31
BUN 22 mg/dl (9-20) H 03/24/25 03:31
Creatinine 1.1 mg/dL (0.7-1.3) 03/24/25 03:31
Glucose 130 mg/dl (70-99) H 03/24/25 03:31
Vital Signs and I&O:
Vital Signs
Temp Pulse Resp BP Pulse Ox
98.1 F 61 20 122/42 97
03/24/25 07:10 03/24/25 09:00 03/24/25 07:10 03/24/25 07:10 03/24/25 07:10
Vital Signs
Temp Pulse Resp BP Pulse Ox
98.1 F 61 20 122/42 97
03/24/25 07:10 03/24/25 09:00 03/24/25 07:10 03/24/25 07:10 03/24/25 07:10
Intake & Output
03/22/25 03/23/25 03/24/25 03/25/25
06:59 06:59 06:59 06:59
Intake Total 1228 / 1228
Output Total 1050 / 1050 400 / 400
Balance 178 / 178 -400 / -400
Physical Exam
Physical Exam
NAD< AOX3
S1, S2, RRR
CTAB, non labored, no wheeze
SNTND Bsx4
R fem site c/d/i no HT, soft
[2025-03-24 11:30] VITALS: BP 123/51
--- NOTE | 2025-03-24 12:07 | CM ---
Chart reviewed. Patient is independent of ADLS, lives with his in a 2 [address], 2 FRITZ, 0 DME. Plan is for the patient to return home.
--- NOTE | 2025-03-24 14:53 | W.DS.TRANS ---
DC Summary - Collections Director
-
Discharge Instructions:
Discharge Diagnosis/Procedures Angioplasty with stent to LAD
Diet Low Cholesterol
Driving Restrictions No driving for 24 hours
Other Services Cardiac Rehab
Instructions:
Stand-Alone Forms: DC Instructions- Cath/EP Lab
Changes to Home Medications: Yes
Discharge Medications:
DC Medications w/original date entered in [employer]
pantoprazole 40 mg tablet,delayed release 40 mg PO DAILY 04/07/12
Testopel 8 - 10 tab PO [id number] 07/06/20
trazodone 50 mg tablet 50 mg PO HS PRN sleep 07/06/20
cholecalciferol (vitamin D3) 125 mcg (5,000 unit) tablet (Vitamin D3) 125 mcg PO DAILY 01/08/23
sildenafil 100 mg tablet 100 mg PO DAILY PRN ED 01/08/23
valsartan 320 mg-hydrochlorothiazide 25 mg tablet 0.5 tab PO DAILY 01/08/23
aspirin 81 mg tablet 81 mg PO DAILY 03/23/25
ezetimibe 10 mg tablet 10 mg PO DAILY 03/23/25
inclisiran 284 mg/1.5 mL subcutaneous syringe (Leqvio) 284 mg SC [id number] 03/23/25
multivitamin 1 tab PO DAILY 03/23/25
clopidogrel 75 mg tablet 75 mg PO DAILY #90 tabs 03/24/25
Home Medication Changes
new to plavix
Pending Results: No
== END 2025-03-24 13:23 | disposition home or self-care (01) ==
LOC: CATH 11:13
PROVIDERS: Nurse Practitioner Adult Health; ATTENDING PHYSICIAN Student in an Organized Health Care Education/Training Program; FAMILY PHYSICIAN Family Medicine
DX: I25.118 Atherosclerotic heart disease of native coronary artery with other forms of angina pectoris (principal); G47.33 Obstructive sleep apnea (adult) (pediatric); E78.5 Hyperlipidemia, unspecified
CPT/HCPCS: 93799; 92978; 80048; 80053; 80061; 85027; 85347; 93005; 93458; 99152; 99153; C1725; C1753; C1760; C1769; C1874; C1894; C9600; Q9967

== ENCOUNTER 2025-04-23 10:32 | Outpatient (RCR) | payer MEDICARE, OTHER, SELFPAY | END 2025-04-23 23:59 | disposition home or self-care (01) | LOC: CRHB 10:32 | PROVIDERS: ATTENDING PHYSICIAN Student in an Organized Health Care Education/Training Program | DX: I25.10 Atherosclerotic heart disease of native coronary artery without angina pectoris (principal); Z95.5 Presence of coronary angioplasty implant and graft | CPT/HCPCS: G0422; G0423 ==

== ENCOUNTER → 2025-05-10 07:24 | Outpatient (REF) | payer MEDICARE, OTHER, SELFPAY ==
[2025-05-10 08:06] LABS: Hematocrit 44.6 % (39.0-52.0); Hemoglobin 15.3 g/dL (13.0-18.0); Mean Corp Hgb Conc. 34.3 g/dL (33.0-37.0); Mean Corpuscular Volume 93.1 fL (80.0-94.0); Nucleated Red Blood Cells % 0 % (-); Platelet Count 242 10^3/uL (130-400); Red Cell Dist. Width 12.9 % (11.5-14.5)
[2025-05-10 09:09] LABS: C-Reactive Protein < 5.00 mg/L (0.0-10.00)
[2025-05-10 11:09] LABS: ALT (SGPT) 26 U/L (0-50); AST (SGOT) 24 U/L (17-59); Albumin 4.4 g/dl (3.5-5.0); Alkaline Phosphatase 56 U/L (38-126); Blood Urea Nitrogen 23 mg/dl (9-20); Calcium 9.9 mg/dl (8.4-10.2); Carbon Dioxide 30 mmol/L (22-30); Chloride 103 mmol/L (98-107); Glucose 109 mg/dl (70-99); Potassium 4.8 mmol/L (3.5-5.1); Sodium 137 mmol/L (135-145); Total Protein 7.2 g/dl (6.3-8.2); Uric Acid 8.5 mg/dl (3.5-8.5); eGFR 53.40
== END ==
LOC: REG 07:24
PROVIDERS: ATTENDING PHYSICIAN Internal Medicine; FAMILY PHYSICIAN Family Medicine
DX: M10.9 Gout, unspecified (principal); M06.4 Inflammatory polyarthropathy; Z51.81 Encounter for therapeutic drug level monitoring
CPT/HCPCS: 36415; 80053; 84550; 85025; 85652; 86140

== ENCOUNTER 2025-05-19 08:41 | Outpatient (RCR) | payer MEDICARE, OTHER, SELFPAY | END 2025-05-19 23:59 | disposition home or self-care (01) | LOC: CRHB 08:41 | PROVIDERS: ATTENDING PHYSICIAN Student in an Organized Health Care Education/Training Program | DX: I25.10 Atherosclerotic heart disease of native coronary artery without angina pectoris (principal); Z95.5 Presence of coronary angioplasty implant and graft | CPT/HCPCS: G0422 ==